=== PATIENT | male | born 1960 | race Caucasian/White ===

== ENCOUNTER → 2019-12-06 | Outpatient (CLI) | payer BC, OTHER ==
[~2019-12-06] MED LIST: AMLO-150 PO; ASPI81TA45 PO; ATOR10TA9 PO; TRAZ50TA66 PO
[2019-12-06 14:28] LABS: MICROSCOPIC NOT IND
[2019-12-06 14:33] LABS: CULTURE INDICATED? NO
[2019-12-06 14:37] LABS: BASOPHILS # (AUTO) 0.03 x10^3/uL (0-0.1); BASOPHILS % (AUTO) 1 % (0-1); EOSINOPHILS # (AUTO) 0.51 x10^3/uL (0-0.4); EOSINOPHILS % (AUTO) 7 % (1-7); LYMPHOCYTES % (AUTO) 31 % (22-44); MD NO; MEAN CORPUSCULAR HEMOGLOBIN 33.6 pg (27.5-34.5); MEAN CORPUSCULAR VOLUME 96.1 fL (81-97); MONOCYTES # (AUTO) 0.55 x10^3/uL (0.2-0.8); MONOCYTES % (AUTO) 8 % (2-9); NEUTROPHILS # (AUTO) 3.88 x10^3/uL (1.8-6.8); NEUTROPHILS % (AUTO) 54 % (42-75); PLATELET COUNT 288 x10^3/uL (130-400); RED BLOOD COUNT 4.53 x10^6/uL (4.38-5.82); RED CELL DISTRIBUTION WIDTH 12.7 % (9.4-14.8)
[2019-12-06 14:40] LABS: ALBUMIN 4.1 g/dL (3.4-5.0); ANION GAP 5 mmol/L (5-15); CALCIUM 8.9 mg/dL (8.5-10.1); CHLORIDE 107 mmol/L (98-107)
[2019-12-06 14:44] LABS: ALANINE AMINOTRANSFERASE 51 U/L (12-78); ALKALINE PHOSPHATASE 64 U/L (45-117); BILIRUBIN,TOTAL 0.5 mg/dL (0.2-1.0); CREATININE 0.93 mg/dL (0.7-1.3); TOTAL PROTEIN 7.4 g/dL (6.4-8.2)
[2019-12-06 14:54] LABS: PROTHROMBIN TIME 10.6 Seconds (9.6-11.5)
== END | disposition home or self-care (01) ==
LOC: STAR 13:14
PROVIDERS: ATTEND Neurological Surgery
DX: Z01.811 Encounter for preprocedural respiratory examination (principal)
CPT/HCPCS: 36415; 71046; 80053; 81003; 85025; 85610; 85730; 93005

== ENCOUNTER → 2020-11-20 | Outpatient (CLI) | payer OTHER ==
[~2020-11-20] MED LIST changes: +DULO30CA2 PO; +GABA-826 PO; +HYDROCHLOROTH12.5 MG PO; +METH4TAB2 PO; +METH750T2 PO; +OXYC1TAB14 PO
[2020-11-20 09:58] LABS: ALANINE AMINOTRANSFERASE 41 U/L (12-78); ALBUMIN 3.9 g/dL (3.4-5.0); ANION GAP 5 mmol/L (5-15); CALCIUM 8.7 mg/dL (8.5-10.1); CHLORIDE 108 mmol/L (98-107); CREATININE 0.93 mg/dL (0.7-1.3)
[2020-11-20 10:00] LABS: ALKALINE PHOSPHATASE 53 U/L (45-117); BILIRUBIN,TOTAL 0.5 mg/dL (0.2-1.0); TOTAL PROTEIN 7.1 g/dL (6.4-8.2)
== END | disposition home or self-care (01) ==
LOC: STAR 08:07
PROVIDERS: ATTEND Surgery Surgery of the Hand
DX: Z01.818 Encounter for other preprocedural examination (principal); G56.01 Carpal tunnel syndrome, right upper limb; G56.21 Lesion of ulnar nerve, right upper limb; M25.521 Pain in right elbow; R00.1 Bradycardia, unspecified; Z20.822 Contact with and (suspected) exposure to COVID-19
CPT/HCPCS: 80053; 87635; 93005

== ENCOUNTER 2020-11-26 05:26 | Day surgery (SDC) | payer OTHER ==
[~2020-11-26] VITALS: Ht 175.3 cm; Wt 88.8 kg
[~2020-11-26 05:26] MED LIST changes: +METH-640 PO; -METH750T2 PO
[2020-11-26 06:11] VITALS: BP 127/82
[2020-11-26] MEDS ORDERED: BUPIVACAINE/PF 0.25% ONE (06:14)
[2020-11-26] MEDS ORDERED: CHLORHEXIDINE 15 ML UDC MM ONE (06:30)
[2020-11-26] MEDS ORDERED: LACTATED RINGERS 1,000 ML IV SCH (06:30)
[2020-11-26] MEDS ORDERED: MIDAZOLAM 1 MG/ML, 2ML ONE (06:41)
[2020-11-26] MEDS ORDERED: FENTANYL PF 100 MCG/2ML ONE ×4 (06:41→11:52)
[2020-11-26] MEDS ORDERED: PROMETHAZINE 25 MG/ML, 1ML IVPush PRN (07:00)
[2020-11-26] MEDS ORDERED: KETOROLAC 30 MG/1 ML IVPush PRN (07:00)
[2020-11-26] MEDS ORDERED: ONDANSETRON 2MG/ML, 2ML IVPush PRN (07:00)
[2020-11-26] MEDS ORDERED: MEPERIDINE/PF 25MG/0.5ML IVPush PRN (07:00)
[2020-11-26] MEDS ORDERED: CEFAZOLIN 1,000 MG ONE (07:06)
[2020-11-26] MEDS ORDERED: DEXAMETHASONE 4 MG/ML, 1ML ONE (07:06)
[2020-11-26] MEDS ORDERED: ONDANSETRON 2MG/ML, 2ML ONE (07:06)
[2020-11-26] MEDS ORDERED: PROPOFOL 10 MG/ML, 20ML ONE (07:06)
[2020-11-26] MEDS ORDERED: KETOROLAC 30 MG/1 ML ONE (10:25)
[2020-11-26] MEDS ORDERED: OXYcodone 5 MG/5 ML ORAL.SOL UDC ONE ×2 (10:25→10:50)
[2020-11-26] MEDS: FENTANYL PF 100 MCG/2ML IV PRN ×3 (10:28→10:45)
[2020-11-26] MEDS: OXYcodone 5 MG/5 ML ORAL.SOL UDC PO PRN ×2 (10:32→10:53)
[2020-11-26] MEDS ORDERED: HYDROmorphone 1 MG/ML, 1ML INJ ONE (10:49)
[2020-11-26] MEDS: HYDROmorphone 1 MG/ML, 1ML INJ IVPush PRN ×2 (10:52→12:28)
[2020-11-26] MEDS ORDERED: METHOCARBAMOL 1,000 MG in DEXTROSE 5% 100 ML IV ONE (11:00)
== END 2020-11-26 14:15 | disposition home or self-care (01) ==
LOC: OUT 05:26
PROVIDERS: ATTEND Surgery Surgery of the Hand
DX: G56.21 Lesion of ulnar nerve, right upper limb (principal); G56.01 Carpal tunnel syndrome, right upper limb; I10 Essential (primary) hypertension; Z79.82 Long term (current) use of aspirin; Z79.899 Other long term (current) drug therapy; Z72.89 Other problems related to lifestyle; F17.210 Nicotine dependence, cigarettes, uncomplicated
CPT/HCPCS: 64718; 64795; 88302; J0690; J1100; J1170; J1885; J2250; J2405; J2704; J2800; J3010; J7120